=== PATIENT | female | born 1985 | race Caucasian/White ===

== ENCOUNTER 2018-06-27 19:42 | Emergency (ER) | payer MEDICAID, SELFPAY ==
[2018-06-27 20:30] LABS: BASOPHILS # (AUTO) 0.01 x10^3/uL (0-0.1); BASOPHILS % (AUTO) 0 % (0-1); EOSINOPHILS # (AUTO) 0.01 x10^3/uL (0-0.4); EOSINOPHILS % (AUTO) 0 % (1-7); LYMPHOCYTES # (AUTO) 0.83 x10^3/uL (1-3.4); LYMPHOCYTES % (AUTO) 10 % (22-44); MD NO; MEAN CORPUSCULAR HEMOGLOBIN 33.8 pg (27.0-34.8); MEAN CORPUSCULAR HGB CONC 33.3 g/dL (32.4-35.8); MEAN CORPUSCULAR VOLUME 101.4 fL (80-100); MEAN PLATELET VOLUME 8.1 fL (7.4-10.4); MONOCYTES # (AUTO) 0.88 x10^3/uL (0.2-0.8); MONOCYTES % (AUTO) 11 % (2-9); NEUTROPHILS # (AUTO) 6.28 x10^3/uL (1.8-6.8); NEUTROPHILS % (AUTO) 79 % (42-75); PLATELET COUNT 160 x10^3/uL (130-400); RED BLOOD COUNT 4.33 x10^6/uL (3.82-5.3); RED CELL DISTRIBUTION WIDTH 14.7 % (9.6-15.2)
[2018-06-27] MEDS ORDERED: SODIUM CHLORIDE 0.9% 1,000ML IVBOLUS ONE (20:30)
[2018-06-27] MEDS ORDERED: SODIUM CHLORIDE FLUSH 10ML SYR IVF ONE (20:30)
[2018-06-27 20:42] LABS: ALANINE AMINOTRANSFERASE 106 U/L (12-78); ANION GAP 18 mmol/L (5-15); CALCIUM 8.6 mg/dL (8.5-10.1); CHLORIDE 99 mmol/L (98-107)
[2018-06-27 20:44] LABS: ALKALINE PHOSPHATASE 145 U/L (45-117); TOTAL PROTEIN 8.4 g/dL (6.4-8.2)
[2018-06-27 20:46] LABS: AMPHETAMINE SCREEN, URINE Negative (Negative); BARBITURATE SCREEN, URINE Negative (Negative); BENZODIAZEPINE SCREEN, URINE Negative (Negative); CANNABINOID SCREEN, URINE Positive (Negative); COCAINE SCREEN, URINE Positive (Negative); METHADONE SCREEN, URINE Negative (Negative); OPIATE SCREEN, URINE Negative (Negative)
[2018-06-27 21:32] VITALS: BP 127/84
== END 2018-06-27 21:43 | disposition home or self-care (01) ==
LOC: ED 21:35
DX: R55 Syncope and collapse (principal); F14.129 Cocaine abuse with intoxication, unspecified; R00.2 Palpitations; Z79.899 Other long term (current) drug therapy
CPT/HCPCS: 36415; 71045; 80053; 80307; 85025; 85379; 93005; 96360; 99285; J7030

== ENCOUNTER 2020-09-13 20:19 | Emergency (ER) | payer MEDICAID ==
[~2020-09-13] VITALS: Ht 160 cm; Wt 47.4 kg
--- NOTE | 2020-09-13 20:48 | NUR ---
OBSERVED PT WALKING AWAY FROM ED ROOM 6 WITH QUICK, STEADY GAIT. PT WALKED TO AMBULANCE BAY; STATES "I HAVE TO PEE". REDIRECTED PT TO NULL BR ACROSS FROM ROOM 6.
--- NOTE | 2020-09-13 20:50 | NUR ---
PT STARTED WALKING DOWN NULL, REDIRECTED TO ED ROOM 6. JESSICA CARBAJAL NOW AT . PT STATES HER BOYFRIEND BROUGHT HER IN. LAST DRINK: "4 HOURS AGO" "VODKA" "ALOT" PER DAY. A&OX4. DENIES SI. STATES HER BOYFRIEND WILL TAKE HER HOME.
[2020-09-13 20:57] VITALS: BP 124/85
== END 2020-09-13 21:26 | disposition left against medical advice (07) ==
LOC: ED 20:30
DX: F10.120 Alcohol abuse with intoxication, uncomplicated (principal); R00.0 Tachycardia, unspecified; Y90.9 Presence of alcohol in blood, level not specified
CPT/HCPCS: 99281